=== PATIENT | female | born 1975 | race Caucasian/White ===

== ENCOUNTER 2018-01-15 07:53 | Inpatient (IN) | payer OTHER ==
--- NOTE | 2018-01-15 07:56 | EDPHY ---
H & P Time Seen by Provider: 01/15/18 07:56 HPI/ROS: CHIEF COMPLAINT: Abdominal pain and vomiting HISTORY OF PRESENT ILLNESS: Patient cholecystectomy in 2012, at postoperative bile duct leak with reconstruction by Dr. Eliseo Goncalves in [place] at [facility]. She has had intermittent abdominal tightness about once a month ever since then but has had symptoms this time since Friday evening. She developed upper abdominal pain associated with vomiting at that time, was a little bit better Friday, but today presents with moderate to severe upper abdominal pain associated with nausea and repeated vomiting. No diarrhea or fever. No urinary symptoms or bleeding or . Worse with any attempted oral intake, not positional. REVIEW OF SYSTEMS: Eye: no change in vision ENT: no sore throat Cardiac: no chest pain or syncope Pulmonary: no cough or SOB Abdomen: HPI, feels slightly distended. Musculoskeletal: no back pain Skin: no rash Neuro: no headache Constitutional: no fever : no urinary symptoms A comprehensive 10 point review of systems is otherwise negative aside from elements mentioned in the history of present illness. PAST MEDICAL HISTORY: Cholecystectomy April 2013 with postoperative bile duct leak. Social history: Tobacco smoker General Appearance: Alert and conversant, cooperative. Eyes: No scleral icterus. ENT, Mouth: Normal mucous membranes. Respiratory: Normal respiratory effort, breath sounds equal, lungs are clear to auscultation. Cardiovascular: Regular rate and rhythm. Gastrointestinal: Right upper and lower abdominal and epigastric tenderness, bowel sounds present. Neurological: Alert, face symmetric, normal motor and sensory in extremities. Skin: Warm and dry, no rashes. Musculoskeletal: No peripheral edema. Psychiatric: Not agitated. Emergency Department course/MDM: Vitals noted hr 98, afebrile. Dilaudid 0.5, Zofran 4, IV normal saline 1 L for vomiting and nausea. I-STAT and CT abdomen pelvis discussed and consented. Labs to include CBC chemistry lipase and LFTs. 826: Creatinine 0.7, noted to be probably hemoconcentrated with elevated hematocrit. CT abdomen and pelvis ordered, IV normal saline 2nd L. 1038: results discussed with the patient and CT reviewed on the computer system including Dr. Antony's diagnosis of partial small bowel obstruction. Patient is requesting transfer to [place] to her surgeon which I think is reasonable. 1046: Discussed with Dr. Goncalves accepts in transfer at [place]. 1330: [facility] is now telling us that they will not have an inpatient bed available until tomorrow. Admit here; patient and family and consented. Smoking Status: Current every day smoker Constitutional: Initial Vital Signs Temperature (C) 36.5 C 01/15/18 07:55 Heart Rate 98 01/15/18 07:55 Respiratory Rate 17 01/15/18 07:55 Blood Pressure 115/90 H 01/15/18 07:55 O2 Sat (%) 94 01/15/18 07:55 O2 Delivery Mode Nasal Cannula O2 (L/minute) 2 Allergies/Adverse Reactions: cefazolin Allergy (Intermediate, Verified 01/15/18 07:54) Hives Home Medications: Medication Instructions Recorded NK [No Known Home Meds] 01/15/18 Medical Decision Making - Diagnostics Imaging Results: Imaging Impressions Abdomen CT 01/15/18 08:26 Impression: Status post partial resection of the right lobe of the liver and cholecystectomy. Moderate intrahepatic biliary ductal dilatation within the remaining liver. Partial small bowel obstruction at the proximal jejunum in the right upper quadrant. Results called and discussed with Efrain Stuart on 01/15/2018 at 10:38 a.m. Imaging: Discussed imaging studies w/ call center nurse Radiologist Differential Diagnosis: Differential considered including but not limited to bowel obstruction, bile duct problem, common duct stone, intestinal perforation, gastroenteritis. Consult/Admit Bed Type: [facility] to consult 1333, [facility] for at [place] 1340 - Data Points Laboratory Results: Laboratory Results 01/15/18 08:11 01/15/18 08:11 01/15/18 01/15/18 01/15/18 13:00 08:22 08:18 WBC RBC Hgb POC Hgb 19.4 gm/dL H gm/dL (12.6-16.3) Hct POC Hct 57 % H % (38-47) MCV MCH MCHC RDW Plt Count MPV Neut % (Auto) Lymph % (Auto) Izard % (Auto) Eos % (Auto) Baso % (Auto) Nucleat RBC Rel Count Absolute Neuts (auto) Absolute Lymphs (auto) Absolute Monos (auto) Absolute Eos (auto) Absolute Basos (auto) Absolute Nucleated RBC Immature Gran % Immature Gran # PT 12.9 SEC SEC (12.0-15.0) INR 0.95 (0.83-1.16) POC Sodium 141 mEq/L mEq/L (135-145) Sodium POC Potassium 3.3 mEq/L mEq/L (3.3-5.0) Potassium POC Chloride 98 mEq/L mEq/L (97-110) Chloride Carbon Dioxide Anion Gap POC BUN 16 mg/dL mg/dL (7-23) BUN Creatinine POC Creatinine 0.7 mg/dL mg/dL (0.6-1.0) Estimated GFR Glucose POC Glucose 122 mg/dL H mg/dL (70-100) Calcium Total Bilirubin Conjugated Bilirubin Unconjugated Bilirubin AST ALT Alkaline Phosphatase Total Protein Albumin Lipase Beta HCG, Qual NEGATIVE 01/15/18 01/15/18 08:11 08:11 WBC 6.10 10^3/uL 10^3/uL (3.80-9.50) RBC 5.73 10^6/uL H 10^6/uL (4.18-5.33) Hgb 19.1 g/dL H g/dL (12.6-16.3) POC Hgb Hct 52.8 % H % (38.0-47.0) POC Hct MCV 92.1 fL fL (81.5-99.8) MCH 33.3 pg pg (27.9-34.1) MCHC 36.2 g/dL g/dL (32.4-36.7) RDW 11.6 % % (11.5-15.2) Plt Count 150 10^3/uL 10^3/uL (150-400) MPV 9.7 fL fL (8.7-11.7) Neut % (Auto) 64.3 % % (39.3-74.2) Lymph % (Auto) 26.9 % % (15.0-45.0) Izard % (Auto) 7.0 % % (4.5-13.0) Eos % (Auto) 1.1 % % (0.6-7.6) Baso % (Auto) 0.5 % % (0.3-1.7) Nucleat RBC Rel Count 0.0 % % (0.0-0.2) Absolute Neuts (auto) 3.92 10^3/uL 10^3/uL (1.70-6.50) Absolute Lymphs (auto) 1.64 10^3/uL 10^3/uL (1.00-3.00) Absolute Monos (auto) 0.43 10^3/uL 10^3/uL (0.30-0.80) Absolute Eos (auto) 0.07 10^3/uL 10^3/uL (0.03-0.40) Absolute Basos (auto) 0.03 10^3/uL 10^3/uL (0.02-0.10) Absolute Nucleated RBC 0.00 10^3/uL 10^3/uL (0-0.01) Immature Gran % 0.2 % % (0.0-1.1) Immature Gran # 0.01 10^3/uL 10^3/uL (0.00-0.10) PT INR POC Sodium Sodium 138 mEq/L mEq/L (135-145) POC Potassium Potassium 3.5 mEq/L mEq/L (3.3-5.0) POC Chloride Chloride 97 mEq/L mEq/L (97-110) Carbon Dioxide 28 mEq/l mEq/l (22-31) Anion Gap 13 mEq/L mEq/L (8-16) POC BUN BUN 17 mg/dL mg/dL (7-23) Creatinine 0.7 mg/dL mg/dL (0.6-1.0) POC Creatinine Estimated GFR > 60 Glucose 121 mg/dL H mg/dL (70-100) POC Glucose Calcium 10.4 mg/dL mg/dL (8.5-10.4) Total Bilirubin 1.4 mg/dL mg/dL (0.1-1.4) Conjugated Bilirubin 0.2 mg/dL mg/dL (0.0-0.5) Unconjugated Bilirubin 1.2 mg/dL H mg/dL (0.0-1.1) AST 121 IU/L H IU/L (14-46) ALT 469 IU/L H IU/L (9-52) Alkaline Phosphatase 154 IU/L H IU/L (38-126) Total Protein 8.0 g/dL g/dL (6.3-8.2) Albumin 4.8 g/dL g/dL (3.5-5.0) Lipase 32 IU/L IU/L (23-300) Beta HCG, Qual Medications Given: Discontinued Medications Hydromorphone HCl (Dilaudid) 0.5 mg IVP EDNOW ONE Stop: 01/15/18 08:13 Last Admin: 01/15/18 08:20 Dose: 0.5 mg Hydromorphone HCl (Dilaudid) 1 mg IVP EDNOW ONE Stop: 01/15/18 09:28 Last Admin: 01/15/18 09:37 Dose: 1 mg Hydromorphone HCl (Dilaudid) 1 mg IVP EDNOW ONE Stop: 01/15/18 09:28 Last Admin: 01/15/18 09:33 Dose: Not Given Sodium Chloride (Ns) 1,000 mls @ 0 mls/hr IV EDNOW ONE; Wide Open PRN Reason: Protocol Stop: 01/15/18 08:13 Last Admin: 01/15/18 08:21 Dose: 1,000 mls Sodium Chloride (Ns) 1,000 mls @ 0 mls/hr IV EDNOW ONE; Wide Open PRN Reason: Protocol Stop: 01/15/18 08:27 Last Admin: 01/15/18 09:20 Dose: 1,000 mls Metoclopramide HCl (Reglan Injection) 10 mg IVP EDNOW ONE Stop: 01/15/18 10:42 Last Admin: 01/15/18 10:54 Dose: 10 mg Ondansetron HCl (Zofran) 4 mg IVP EDNOW ONE Stop: 01/15/18 08:13 Last Admin: 01/15/18 08:20 Dose: 4 mg Ondansetron HCl (Zofran) 4 mg IVP EDNOW ONE Stop: 01/15/18 09:25 Last Admin: 01/15/18 09:28 Dose: 4 mg Promethazine HCl (Phenergan) 12.5 mg IVP ONCE ONE Stop: 01/15/18 11:59 Last Admin: 01/15/18 12:09 Dose: 12.5 mg Point of Care Test Results: Chemistry 01/15/18 08:18 POC Sodium 141 mEq/L mEq/L (135-145) POC Potassium 3.3 mEq/L mEq/L (3.3-5.0) POC Chloride 98 mEq/L mEq/L (97-110) POC BUN 16 mg/dL mg/dL (7-23) POC Creatinine 0.7 mg/dL mg/dL (0.6-1.0) POC Glucose 122 mg/dL H mg/dL (70-100) ISTAT H&H 01/15/18 08:18 POC Hgb 19.4 gm/dL H gm/dL (12.6-16.3) POC Hct 57 % H % (38-47) Departure - Departure Disposition: [facility] Inpatient Acute Clinical Impression: Partial bowel obstruction Qualifiers: Intestinal obstruction type: unspecified Qualified Code(s): K56.600 - Partial intestinal obstruction, unspecified as to cause Condition: Good
[2018-01-15] MEDS ORDERED: ONDANSETRON 4 MG/2 ML VIAL IVP ONE ×2 (08:12→09:24)
[2018-01-15] MEDS ORDERED: HYDROmorphONE/DILAUDID 2 MG/ML INJ IVP ONE ×2 (08:12→09:27)
[2018-01-15] MEDS ORDERED: NS 1,000 ML IV ONE ×2 (08:12→08:26)
[2018-01-15 08:25] LABS: PLATELET COUNT 150 10^3/uL (150-400)
[2018-01-15] MEDS ORDERED: HYDROmorphONE/DILAUDID 1 MG/ML INJ ONE ×2 (08:39→09:26)
[2018-01-15] MEDS ORDERED: IOPAMIDOL (ISOVUE-300) 100 ML BTL ONE (09:15)
[2018-01-15] MEDS ORDERED: ONDANSETRON 4 MG/2 ML VIAL ONE (09:17)
[2018-01-15] MEDS: HYDROmorphONE/DILAUDID 2 MG/ML INJ IVP ONE ×2 (09:30→09:37)
[2018-01-15] MEDS ORDERED: METOCLOPRAMIDE 10 MG/2 ML VIAL IVP ONE (10:41)
[2018-01-15] MEDS ORDERED: PROMETHAZINE HCL 25 MG/ML INJ IVP ONE (11:58)
[2018-01-15] MEDS ORDERED: fentaNYL 100 MCG/2 ML INJ ONE (13:45)
[2018-01-15] MEDS ORDERED: PROMETHAZINE HCL 25 MG/ML INJ IVP PRN (13:48)
[2018-01-15] MEDS ORDERED: ONDANSETRON 4 MG/2 ML VIAL IVP PRN (13:48)
[2018-01-15] MEDS ORDERED: D5W NS W/ 20 KCl/L 1,000 ML IV SCH (14:00)
[2018-01-15 14:03] LABS: INR 0.95 (0.83-1.16); PROTIME(PATIENT) 12.9 SEC (12.0-15.0)
[2018-01-15] MEDS: HYDROmorphONE/DILAUDID 1 MG/ML INJ IVP PRN ×2 (14:52→20:03)
[2018-01-15] MEDS ORDERED: fentaNYL 100 MCG/2 ML INJ IVP ONE (15:37)
--- NOTE | 2018-01-15 15:44 | PDGENHP ---
History and Physical - Chief Complaint abdominal pain, vomiting - History of Present Illness 42 yo female with h/o lap bal in 2013 complicated by bile leak requiring repair and partial resection of liver, presents to ED with abdominal pain and vomiting. Her pain started 2 days ago and was associated with vomiting. She felt a little better yesterday and went to work, but pain increased last night and she vomited "all night". Her last BM was last night and was relatively normal. She has not tolerated po today. She denies fevers or chills. No prior bowel obstructions since surgery in 2013. Apparently, she wished to transfer to [facility] where her surgeon is, but no beds were available. She is admitted for further management and surgery is consulted. History Information - Allergies/Home Medication List Allergies/Adverse Reactions: cefazolin Allergy (Intermediate, Verified 01/15/18 07:54) Hives Home Medications: NK [No Known Home Meds] 01/15/18 [Last Taken Unknown] I have personally reviewed and updated: family history, medical history, social history, surgical history - Past Medical History no pertinent PMH - Surgical History Additional surgical history: lap bal complicated by bile duct leak requiring repair and partial liver resection in 2013 at [facility] - Family History Positive for: non-pertinent - Social History Smoking Status: Current every day smoker Alcohol Use: None Drug Use: None Additional social history: , at bedside. Review of Systems Review of Systems: ROS: 10pt was reviewed & negative except for what was stated in HPI & below Physical Exam Physical Exam: Temp Pulse Resp BP Pulse Ox 36.5 C 61 16 132/87 H 96 01/15/18 07:55 01/15/18 14:35 01/15/18 14:35 01/15/18 14:35 01/15/18 14:35 Constitutional: no apparent distress Eyes: PERRL Ears, Nose, Mouth, Throat: moist mucous membranes Cardiovascular: regular rate and rhythym, no murmur, rub, or gallop Respiratory: no respiratory distress, clear to auscultation Gastrointestinal: other (absent bowel tones, soft, non-distended, diffuse TTP without peritoneal signs) Skin: warm Musculoskeletal: full muscle strength Neurologic: AAOx3 Psychiatric: interacting appropriately Lab Data & Imaging Review 01/15/18 08:11 01/15/18 08:11 WBC 6.10 10^3/uL (3.80-9.50) 01/15/18 08:11 RBC 5.73 10^6/uL (4.18-5.33) H 01/15/18 08:11 Hgb 19.1 g/dL (12.6-16.3) H 01/15/18 08:11 POC Hgb 19.4 gm/dL (12.6-16.3) H 01/15/18 08:18 Hct 52.8 % (38.0-47.0) H 01/15/18 08:11 POC Hct 57 % (38-47) H 01/15/18 08:18 MCV 92.1 fL (81.5-99.8) 01/15/18 08:11 MCH 33.3 pg (27.9-34.1) 01/15/18 08:11 MCHC 36.2 g/dL (32.4-36.7) 01/15/18 08:11 RDW 11.6 % (11.5-15.2) 01/15/18 08:11 Plt Count 150 10^3/uL (150-400) 01/15/18 08:11 MPV 9.7 fL (8.7-11.7) 01/15/18 08:11 Neut % (Auto) 64.3 % (39.3-74.2) 01/15/18 08:11 Lymph % (Auto) 26.9 % (15.0-45.0) 01/15/18 08:11 Carver % (Auto) 7.0 % (4.5-13.0) 01/15/18 08:11 Eos % (Auto) 1.1 % (0.6-7.6) 01/15/18 08:11 Baso % (Auto) 0.5 % (0.3-1.7) 01/15/18 08:11 Nucleat RBC Rel Count 0.0 % (0.0-0.2) 01/15/18 08:11 Absolute Neuts (auto) 3.92 10^3/uL (1.70-6.50) 01/15/18 08:11 Absolute Lymphs (auto) 1.64 10^3/uL (1.00-3.00) 01/15/18 08:11 Absolute Monos (auto) 0.43 10^3/uL (0.30-0.80) 01/15/18 08:11 Absolute Eos (auto) 0.07 10^3/uL (0.03-0.40) 01/15/18 08:11 Absolute Basos (auto) 0.03 10^3/uL (0.02-0.10) 01/15/18 08:11 Absolute Nucleated RBC 0.00 10^3/uL (0-0.01) 01/15/18 08:11 Immature Gran % 0.2 % (0.0-1.1) 01/15/18 08:11 Immature Gran # 0.01 10^3/uL (0.00-0.10) 01/15/18 08:11 PT 12.9 SEC (12.0-15.0) 01/15/18 13:00 INR 0.95 (0.83-1.16) 01/15/18 13:00 POC Sodium 141 mEq/L (135-145) 01/15/18 08:18 Sodium 138 mEq/L (135-145) 01/15/18 08:11 POC Potassium 3.3 mEq/L (3.3-5.0) 01/15/18 08:18 Potassium 3.5 mEq/L (3.3-5.0) 01/15/18 08:11 POC Chloride 98 mEq/L (97-110) 01/15/18 08:18 Chloride 97 mEq/L (97-110) 01/15/18 08:11 Carbon Dioxide 28 mEq/l (22-31) 01/15/18 08:11 Anion Gap 13 mEq/L (8-16) 01/15/18 08:11 POC BUN 16 mg/dL (7-23) 01/15/18 08:18 BUN 17 mg/dL (7-23) 01/15/18 08:11 Creatinine 0.7 mg/dL (0.6-1.0) 01/15/18 08:11 POC Creatinine 0.7 mg/dL (0.6-1.0) 01/15/18 08:18 Estimated GFR > 60 01/15/18 08:11 Glucose 121 mg/dL (70-100) H 01/15/18 08:11 POC Glucose 122 mg/dL (70-100) H 01/15/18 08:18 Calcium 10.4 mg/dL (8.5-10.4) 01/15/18 08:11 Total Bilirubin 1.4 mg/dL (0.1-1.4) 01/15/18 08:11 Conjugated Bilirubin 0.2 mg/dL (0.0-0.5) 01/15/18 08:11 Unconjugated Bilirubin 1.2 mg/dL (0.0-1.1) H 01/15/18 08:11 AST 121 IU/L (14-46) H 01/15/18 08:11 ALT 469 IU/L (9-52) H 01/15/18 08:11 Alkaline Phosphatase 154 IU/L (38-126) H 01/15/18 08:11 Total Protein 8.0 g/dL (6.3-8.2) 01/15/18 08:11 Albumin 4.8 g/dL (3.5-5.0) 01/15/18 08:11 Lipase 32 IU/L (23-300) 01/15/18 08:11 Beta HCG, Qual NEGATIVE 01/15/18 08:22 Visualized and Interpreted imaging results: Yes Interpretation: CT with dilated loops of small bowel with transition point Assessment & Plan Assessment: SBO - pt is in significant pain with ongoing vomiting. Discussed case and reviewed CT images with surgery. NG tube is recommended. NPO, pain control. May need operative intervention. Surgery will follow closely. Elevated LFT's - this may be related to her SBO or vomiting. Normal bilirubin. CT noted mild biliary ductal dilatation which may be related to prior surgery. Will follow for now. Full code Dispo - inpt, anticipate >48 hrs hospitalization for ongoing management of acute SBO.
[2018-01-15 15:59] VITALS: BP 109/95
--- NOTE | 2018-01-15 15:59 | GCON ---
[f rep st] CONSULTATION Asked to see the patient in consultation in regard to abdominal pain, small bowel obstruction. This 42-year-old female has actually been vomiting and having abdominal pain since Friday. She has n ot passed any flatus for 24 hours and was described by her physician as writhing in pain, earlier tod ay. She has gotten some Dilaudid and is much calmer now. ALLERGIES: Potentially some unknown medicine. CURRENT MEDICATIONS: None. SOCIAL HISTORY: Smokes a half-a-pack of cigarettes a day. Drinks alcohol, 2 glasses of Chardonnay d aily. 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 PREVIOUS SURGERY: A cholecystectomy with an apparent bile duct injury, which necessitated a right lo bectomy of the liver several weeks later. She has a right subcostal incision with a midline extensio n. REVIEW OF SYSTEMS: The patient denies asthma, heart trouble, diabetes, epilepsy, rheumatic fever. PHYSICAL EXAM: GENERAL APPEARANCE: Uncomfortable female, retching small amounts into a glass. HEEN T: No scleral icterus. Pharynx clear. NECK: Supple without adenopathy. LUNGS: Clear. HEART: N ormal S1, S2 without murmur. ABDOMEN: Soft, not distended, but tender across the whole abdomen abou t the level of the umbilicus. No hernias seen in her incisions. I reviewed her CT scans, which showed dilated loops of small bowel, 1 with a thickened wall in the mi d abdomen and the transition zone somewhere in the distal bowel with multiple loops of decompressed t erminal ileum in the pelvis. The transverse colon, left colon, sigmoid, et cetera, quite decompresse d. ASSESS: Dilated small bowel with a transition zone and decompressed terminal ileum consistent with s mall bowel obstruction. Her white blood count is 6000. She is afebrile. Despite her vomiting, her potassium is 3.5, chloride is low at 98 suggestive of contraction alkalosis from her vomiting. Bilir ubin is trivially elevated at 1.4. ASSESS: I believe patient has small bowel obstruction. On the Dilaudid, she is not in a lot of pain right now, but I have recommended she stop the Dilaudid and let me re-examine her if the pain return s in a severe fashion. I explained to her that severe pain is an indication for surgery because of t he potential for strangulated loop of bowel. I have recommended NG decompression, which she initiall y refused, but now agrees to try as a means of potentially allowing a small bowel obstruction to reso lve. Also noted in her laboratory exams is ALT of 469, alkaline phosphatase 154, but I doubt her lennie agatha issue is liver. There is minimal biliary dilatation and the common bile duct is not particularl y enlarged. In summary, we will hold the Dilaudid, place an NG tube, see if decompression helps her pain, and the n decide as to whether we can observe this over the course of the evening or whether she needs an exp iration later tonight. I have answered all of the questions for the patient and her . /[id number]/MODL
--- NOTE | 2018-01-15 18:05 | PDMN ---
Medical Necessity Medical necessity: Pt meets inpt criteria per MD order and MCG M-210, Intestinal Obstruction, 2 days. Pt admitted w/2 days abd pain and vomiting, CT shows partial sm bowel obstruction and mild biliary ductal dilation, elev LFT's , surg consult, NGT, NPO, pain control- IV Dilaudid, IV Phenergan for N/V. Anticipate>2MN for ongoing eval and treatment.
--- NOTE | 2018-01-15 20:51 | GDS ---
[f rep st] DISCHARGE SUMMARY DISCHARGE DIAGNOSES: 1. Small bowel obstruction. 2. Elevated liver function tests. 3. A history of laparoscopic cholecystectomy complicated by bile duct leak requiring repair and part ial liver resection. CONSULTANTS: Dr. Rafael Macdonald, General Surgery. IMAGING/PROCEDURES: Abdomen CT shows evidence of a previous partial resection of the right lobe of t he liver and cholecystectomy, moderate intrahepatic biliary ductal dilatation within the remaining li flora, as well as a partial small bowel obstruction at the proximal jejunum in the right upper quadrant . HISTORY: For details, please see history and physical dated January 15, 2018. In brief, the patient is a 42-year-old female who underwent a laparoscopic cholecystectomy in 2012, complicated by a bile hilario t leak requiring repair and partial liver resection, presents to the emergency department with abdomi nal pain and vomiting. Imaging was consistent with a small bowel obstruction. She expressed to the emergency department staff she wished to transfer to the [place], where her surgeon previously car ed for her. This transfer was attempted through the emergency department and she was accepted. [facility], there were no beds available. Therefore, she was admitted to our hospital and surgery consult w as obtained. HOSPITAL COURSE: The patient is admitted to the med/surg unit. She was made n.p.o. She received an tiemetics. I reviewed the CT images with our general surgeon, Dr. Macdonald, who identified a likely transition point. An NG tube was placed for decompression. Our surgeon discussed with her that her severe pain was likely an indication for surgery due to the potential for a strangulated loop of bow el. She initially refused an NG tube, but ultimately did agree. The plan was for serial exams and c onsideration to proceed with operative intervention this evening if her pain persists. [facility]. I advised the patient does not need to transfe r and that we could care for her in our facility. However, she wished to except the risks of transfe r, acknowledging potential for deterioration en route. form is completed. The patient wa s transferred to the [facility], accepted by Dr. Lackey for further management. DISPOSITION: The patient is discharged to the [facility] in stabl e condition. She remains n.p.o. with an NG tube in place. Her pain is controlled with IV Dilaudid. Her vital signs are stable. It is also noted she has been afebrile and had a normal white blood ever l count of 6000. /[id number]/MODL
== END 2018-01-15 19:40 | disposition short-term general hospital (02) | DRG 390 ==
LOC: F3E 14:27
PROVIDERS: ADMIT Hospitalist; ATTEND Hospitalist
PROC: 0D9670Z Drainage of Stomach with Drainage Device, Via Natural or Artificial Opening (ICD-10-PCS; principal; 2018-01-15)
DX: K56.600 Partial intestinal obstruction, unspecified as to cause (principal); R94.5 Abnormal results of liver function studies; K83.8 Other specified diseases of biliary tract; E86.9 Volume depletion, unspecified; F17.210 Nicotine dependence, cigarettes, uncomplicated; Z87.19 Personal history of other diseases of the digestive system; Z90.89 Acquired absence of other organs
CPT/HCPCS: 82435-PO; 82565-PO; 82947-PO; 84132-PO; 84295-PO; 84520-PO; 85014-PO; 96374; J1170; J2405; J2550; J2765; J3010; Q9967